=== PATIENT | male | born 1965 | race African-American/Black ===

== ENCOUNTER 2019-06-18 04:49 | Inpatient (IN) | payer MEDICAID ==
[~2019-06-18] VITALS: Ht 167.6 cm; Wt 76.7 kg
[2019-06-18] MEDS ORDERED: LORAZEPAM 2MG/ML CPJ IV PRN ×2 (05:15→12:15)
[2019-06-18 05:44] LABS: BASOPHILS % 0.5 % (0.0-2.0); EOSINOPHILS % 1.3 % (0.0-5.0); HEMATOCRIT. 44.7 % (42.0-52.0); HEMOGLOBIN. 15.2 g/dL (14.0-18.0); LYMPHOCYTES % 31.7 % (20.0-50.0); MEAN CORPUSCULAR HEMOGLOBIN 33.3 pg (28.0-32.0); MEAN CORPUSCULAR VOLUME 98.1 fL (80.0-94.0); MONOCYTES % 9.9 % (2.0-8.0); NEUTROPHILS % 56.6 % (40.0-76.0); PLATELET 124 x1000/uL (130-400); RED BLOOD CELL COUNT 4.55 mill/uL (4.7-6.1); RED CELL DISTRIBUTION WIDTH 14.3 % (11.6-14.6)
[2019-06-18 05:46] LABS: CHLORIDE 105 mEq/L (98-107)
[2019-06-18 05:51] LABS: ETHANOL BLOOD < 10 mg/dL
[2019-06-18 07:01] LABS: CLARITY URINE CLEAR (CLEAR); COLOR URINE DARK YELLOW (YELLOW); KETONES URINE TRACE (NEGATIVE); LEUKOCYTE ESTERASE URINE NEGATIVE (NEGATIVE); NITRITE URINE NEGATIVE (NEGATIVE); OCCULT BLOOD URINE NEGATIVE (NEGATIVE); PROTEIN URINE 2+ (NEGATIVE); SPECIFIC GRAVITY URINE 1.025 (1.005-1.030); UROBILINOGEN URINE 0.2 E.U./dL (0.2-1.0)
[2019-06-18 07:28] LABS: *AMPHETAMINES SCREEN URINE NEGATIVE (NEGATIVE); *BARBITURATES SCREEN URINE NEGATIVE (NEGATIVE)
[2019-06-18 07:29] LABS: *BENZODIAZEPINES SCREEN URINE NEGATIVE (NEGATIVE); *COCAINE SCREEN URINE NEGATIVE (NEGATIVE); METHADONE URINE SCREEN NEGATIVE (NEGATIVE); OPIATES URINE SCREEN NEGATIVE (NEGATIVE)
[2019-06-18 07:30] LABS: CANNABINOID URINE SCREEN NEGATIVE (NEGATIVE); PHENCYCLIDINE URINE SCREEN NEGATIVE (NEGATIVE)
[2019-06-18 10:00] VITALS: BP 110/75
[2019-06-18] MEDS ORDERED: OMEP20TA15 PO (11:02)
[2019-06-18] MEDS ORDERED: LEVO88TA2 PO (11:02)
[2019-06-18 12:00] VITALS: BP 110/75
[2019-06-18] MEDS ORDERED: ENOXAPARIN 40MG/0.4ML SYR SUBCUT SCH (12:00)
[2019-06-18 12:01] VITALS: BP 101/62
[2019-06-18] MEDS ORDERED: CLONIDINE 0.1MG TABLET PO PRN (12:15)
[2019-06-18] MEDS ORDERED: MAGNESIUM/ALUMINUM HYDROXIDE/SIMETHICONE 30ML UDC PO PRN (12:15)
[2019-06-18] MEDS ORDERED: IPRATROPIUM/ALBUTEROL 0.5-3(2.5)MG/3ML NEB HHN PRN (12:15)
[2019-06-18] MEDS ORDERED: HYDRALAZINE 20MG/ML VIAL IV PRN (12:15)
[2019-06-18] MEDS ORDERED: ACETAMINOPHEN 325MG TABLET PO PRN (12:15)
[2019-06-18] MEDS ORDERED: DOCUSATE SODIUM 100MG CAPSULE PO PRN (12:15)
[2019-06-18] MEDS ORDERED: ONDANSETRON HCL 4MG/2ML INJ IV PRN (12:15)
[2019-06-18] MEDS ORDERED: GUAIFENESIN 200MG/10ML SUGAR FREE UDC PO PRN (12:15)
[2019-06-18] MEDS ORDERED: MORPHINE SULFATE 2 MG/ML CPJ (NOT FOR IM USE) IV PRN (12:15)
[2019-06-18] MEDS ORDERED: DIPHENHYDRAMINE 50MG/ML VIAL IV PRN (12:15)
[2019-06-18] MEDS ORDERED: HYDROCODONE/ACETAMINOPHEN 10/325MG TABLET PO PRN (12:15)
[2019-06-18] MEDS ORDERED: POTASSIUM CHLORIDE 20MEQ TABLET SR PO NR (12:30)
[2019-06-18] MEDS: OMEPRAZOLE 20MG CAPSULE EXTENDED RELEASE PO SCH (13:20)
[2019-06-18] MEDS ORDERED: CEFTRIAXONE 1 G PREMIX 50 ML IV SCH (14:00)
[2019-06-18] MEDS: SODIUM CHLORIDE 0.9% INJ 3ML FLUSH IVF SCH ×2 (14:00→21:32)
[2019-06-18 16:00] VITALS: BP 118/69
[2019-06-18 20:00] VITALS: BP 121/69
[2019-06-18] MEDS: LEVETIRACETAM 500MG TABLET PO SCH (21:30)
[2019-06-19] VITALS: BP 114/69
[2019-06-19 04:00] VITALS: BP 108/61
[2019-06-19] MEDS: SODIUM CHLORIDE 0.9% INJ 3ML FLUSH IVF SCH (06:22)
[2019-06-19] MEDS ORDERED: LEVOTHYROXINE SODIUM 88MCG TABLET PO SCH (07:20)
[2019-06-19 07:35] LABS: BASOPHILS % 0.7 % (0.0-2.0); EOSINOPHILS % 1.3 % (0.0-5.0); HEMATOCRIT. 42.6 % (42.0-52.0); HEMOGLOBIN. 14.7 g/dL (14.0-18.0); MEAN CORPUSCULAR HEMOGLOBIN 33.4 pg (28.0-32.0); MEAN CORPUSCULAR VOLUME 96.8 fL (80.0-94.0); MONOCYTES % 10.8 % (2.0-8.0); NEUTROPHILS % 62.2 % (40.0-76.0); PLATELET 116 x1000/uL (130-400); RED CELL DISTRIBUTION WIDTH 14.3 % (11.6-14.6)
[2019-06-19 07:43] LABS: CHLORIDE 110 mEq/L (98-107)
[2019-06-19 08:00] VITALS: BP 101/58
[2019-06-19] MEDS: OMEPRAZOLE 20MG CAPSULE EXTENDED RELEASE PO SCH (08:42)
[2019-06-19] MEDS: LEVETIRACETAM 500MG TABLET PO SCH (08:42)
[2019-06-19 11:05] VITALS: BP 101/58
== END 2019-06-19 12:00 | disposition home or self-care (01) | DRG 53 ==
LOC: ER 04:49 → 6WST 05:42 → ENRESERV 07:34 → ER 08:30
PROVIDERS: ADMIT Internal Medicine; ATTEND Internal Medicine
PROC: 4A10X4Z Monitoring of Central Nervous Electrical Activity, External Approach (ICD-10-PCS; principal; 2019-06-19)
DX: R56.9 Unspecified convulsions (principal); E03.9 Hypothyroidism, unspecified; N39.0 Urinary tract infection, site not specified; K29.70 Gastritis, unspecified, without bleeding; E87.6 Hypokalemia; I10 Essential (primary) hypertension; Z91.19 Patient's noncompliance with other medical treatment and regimen; Z79.890 Hormone replacement therapy; Z79.899 Other long term (current) drug therapy
CPT/HCPCS: 36415; 80053; 80305; 80320; 81003; 82962; 85025; 95816; 97161; 99285; J0696; J1650; G0480

== ENCOUNTER 2023-09-19 12:07 | Emergency (ER) | payer SELFPAY ==
[~2023-09-19] VITALS: Ht 172.7 cm; Wt 75.0 kg
[~2023-09-19 12:07] MED LIST: LEVO88TA2 PO; OMEP20TA15 PO
[2023-09-19] MEDS: ACETAMINOPHEN 325MG TABLET PO ONE (12:30)
[2023-09-19 12:55] VITALS: O2SAT 99
[2023-09-19 15:05] VITALS: BP 133/81; PULSE 78; RESP 18; TEMP 98.2
[2023-09-19] MEDS ORDERED: DIAZEPAM 5 MG/ML 2ML SYR IV ONE (15:30)
== END 2023-09-19 15:05 | disposition home or self-care (01) ==
LOC: ER 12:07
DX: S91.202A Unspecified open wound of left great toe with damage to nail, initial encounter (principal); E78.00 Pure hypercholesterolemia, unspecified; R56.9 Unspecified convulsions; X58.XXXA Exposure to other specified factors, initial encounter; Y93.89 Activity, other specified; Y92.89 Other specified places as the place of occurrence of the external cause; Y99.8 Other external cause status
CPT/HCPCS: 73630; 99283; Z7610 ×5